=== PATIENT | female | born 1955 | race Caucasian/White ===

== ENCOUNTER 2017-03-05 20:20 | Emergency (ER) | payer OTHER ==
[2017-03-05 20:40] VITALS: BP 139/94; PULSE 57; TEMP 97.6; BMI 25.7
--- NOTE | 2017-03-05 21:23 | PDOC ---
History of Present Illness - General History Source: Patient Exam Limitations: Intoxication - History of Present Illness Initial Comments: CHIEF COMPLAINT: 61 y/o afebrile intoxicated female here with no complaints. HISTORY OF PRESENT ILLNESS: the patient does admit she was drinking vodka today. She states she was walking when an ambulance picked her up and brought her here. She denies all complaints and wants to walk home. She knows where she is and is ambulatory. Vital signs on arrival are notable for pulse of 57. REVIEW OF SYSTEMS: GENERAL/CONSTITUTIONAL: No fever/chills. No weakness. No weight change. HEAD, EYES, EARS, NOSE AND THROAT: No change in vision. No ear pain or discharge. No sore throat. CARDIOVASCULAR: No chest pain or shortness of breath. RESPIRATORY: No cough, wheezing, or hemoptysis. GASTROINTESTINAL: No abd pain, nausea, vomiting, diarrhea. GENITOURINARY: No dysuria, frequency, or change in urination. MUSCULOSKELETAL: No joint or muscle swelling or pain. No neck or back pain. SKIN: No rash or easy bruising. NEUROLOGIC: No headache, vertigo, loss of consciousness, or loss of sensation. PHYSICAL EXAM: GENERAL: The patient is awake, alert, and fully oriented, in no acute distress. She is obviously intoxicated with slightly slurred speech. HEAD: Normal with no signs of trauma. ENT: Pupils equal, round and reactive to light, extraocular movements intact, sclera anicteric, conjunctiva clear. Neck supple. LUNGS: Clear to auscultation bilaterally. Normal excursion. No respiratory distress or use of accessory muscles. CV: RRR, S1/S2, no MRG. Cap refill < 2 sec. ABDOMEN: Soft, non-distended, non-tender even to deep palpation, no hepatomegaly or splenomegaly, no masses. EXTREMITIES: Normal range of motion, no edema. NEUROLOGICAL: slightly slurred speech, intoxicated gait but able to ambulate. CN II-XII grossly intact. PSYCH: Normal mood, normal affect. SKIN: Warm, dry, normal turgor, no rashes or lesions noted. <Albania Richardson - Last Filed: 03/05/17 21:33> <Flaquita Houston - Last Filed: 03/06/17 05:27> - General Chief Complaint: Alcohol intoxication Stated Complaint: INTOX Time Seen by Provider: 03/05/17 21:10 Past History - Past Medical History Other medical history: Pt denies - Psycho/Social/Smoking Cessation Hx Suicidal Ideation: No Smoking History: Never smoked Information on smoking cessation initiated: No Hx Alcohol Use: No Drug/Substance Use Hx: No Substance Use Type: Alcohol <Albania Richardson - Last Filed: 03/05/17 21:33> <Flaquita Houston - Last Filed: 03/06/17 05:27> - Past Medical History Allergies/Adverse Reactions: Allergies Allergy/AdvReac Type Severity Reaction Status Date / Time No Known Allergies Allergy Verified 03/05/17 20:38 *Physical Exam - Vital Signs Last Vital Signs Temp Pulse Resp BP Pulse Ox 97.6 F 57 L 20 139/94 96 03/05/17 20:38 03/05/17 20:38 03/05/17 20:38 03/05/17 20:38 03/05/17 20:38 <Albania Richardson - Last Filed: 03/05/17 21:33> - Vital Signs Last Vital Signs Temp Pulse Resp BP Pulse Ox 97.6 F 57 L 20 139/94 96 03/05/17 20:38 03/05/17 20:38 03/05/17 20:38 03/05/17 20:38 03/05/17 20:38 <Flaquita Houston - Last Filed: 03/06/17 05:27> Medical Decision Making - Medical Decision Making A/P: 61 y/o afebrile intoxicated female here with no complaints who wants to walk home. Pt is A&O x 3. She is intoxicated and admits to drinking vodka today. she can ambulate up and down the hallways of the ER without falling. Will discharge to home. Instructed her to return to the ER with any concerning symptoms. <Albania Richardson - Last Filed: 03/05/17 21:33> *DC/Admit/Observation/Transfer <Albania Richardson - Last Filed: 03/05/17 21:33> - Attestations Physician Attestion: I reviewed the case with the mid-level practitioner and agree with the mid- level practitioner's assessment, diagnosis and disposition. <Flaquita Houston - Last Filed: 03/06/17 05:27> Diagnosis at time of Disposition: Intoxication - Discharge Dispostion Disposition: HOME Condition at time of disposition: Stable - Patient Instructions Printed Discharge Instructions: DI for Alcohol Abuse Additional Instructions: Discharge Instructions: -Return to the ER with any concerning symptoms.
== END 2017-03-05 21:56 | disposition home or self-care (01) ==
LOC: JER 20:20
DX: F10.120 Alcohol abuse with intoxication, uncomplicated (principal)
CPT/HCPCS: 99281-25

== ENCOUNTER 2017-06-04 16:38 | Emergency (ER) | payer OTHER ==
[2017-06-04 16:58] VITALS: BMI 25.7
--- NOTE | 2017-06-04 17:53 | PDOC ---
History of Present Illness - General Chief Complaint: Injury Stated Complaint: FALL Time Seen by Provider: 06/04/17 17:38 History Source: Patient Exam Limitations: No Limitations - History of Present Illness Initial Comments: 06/04/17 17:56 Patient is a 61F with history of a prior alcohol intox admission here today complaining of an injury to her right knee after falling while walking. Denies LOC, head trauma, headache, changes in vision. She states that she tripped because of her shoes, denying any other precipitation symptom such as chest pain , shortness of breath, palpitations, nausea and vomiting. She denies pain in her hip and ankle. She complains of a scratch on the top of her foot. Past History - Past Medical History Allergies/Adverse Reactions: Allergies Allergy/AdvReac Type Severity Reaction Status Date / Time No Known Allergies Allergy Verified 06/04/17 16:59 Home Medications: Ambulatory Orders NK [No Known Home Medication] 06/04/17 COPD: No HTN: Yes (no meds) - Suicide/Smoking/Psychosocial Hx Smoking History: Never smoked Have you smoked in the past 12 months: No Information on smoking cessation initiated: Yes Hx Alcohol Use: No Drug/Substance Use Hx: No Substance Use Type: Alcohol Review of Systems - Review of Systems Comments:: 06/04/17 18:01 GENERAL/CONSTITUTIONAL: No fever or chills. No weakness. HEAD, EYES, EARS, NOSE AND THROAT: No change in vision. No sore throat. CARDIOVASCULAR: No chest pain or shortness of breath RESPIRATORY: No cough, wheezing, or hemoptysis. GASTROINTESTINAL: No nausea, vomiting, diarrhea or constipation. GENITOURINARY: No dysuria, frequency, or change in urination. MUSCULOSKELETAL: Positive for knee pain. No neck or back pain. SKIN: No rash NEUROLOGIC: No headache, vertigo, loss of consciousness, or change in strength/ sensation. ENDOCRINE: No increased thirst. No abnormal weight change HEMATOLOGIC/LYMPHATIC: No anemia, easy bleeding, or history of blood clots. ALLERGIC/IMMUNOLOGIC: No hives or skin allergy. *Physical Exam - Vital Signs Last Vital Signs Temp Pulse Resp BP Pulse Ox 97.9 F 78 18 188/94 100 06/04/17 16:49 06/04/17 16:49 06/04/17 16:49 06/04/17 16:49 06/04/17 16:49 - Physical Exam Comments: 06/04/17 18:03 GENERAL: Awake, alert, and fully oriented, in no acute distress HEAD: No signs of trauma, normocephalic, atraumatic EYES: PERRLA, EOMI, sclera anicteric, conjunctiva clear, ENT: Auricles normal inspection, hearing grossly normal, nares patent, oropharynx clear without exudates. Moist mucosa NECK: Normal ROM, supple, no lymphadenopathy, JVD, or masses. No midline tenderness LUNGS: No distress, speaks full sentences, clear to auscultation bilaterally HEART: Regular rate and rhythm, normal S1 and S2, no murmurs, rubs or gallops, peripheral pulses normal and equal bilaterally. ABDOMEN: Soft, nontender, normoactive bowel sounds. No guarding, no rebound. No masses R KNEE: Small abrasion on front of knee, diffusely tender, swollen, refusing to move right knee, neurovascularly intact distal to injury R ANKLE: Small abrasion on ventral aspect of right ankle, nontender HIPS: Stable to rock, nontender. NEUROLOGICAL: Cranial nerves II through XII grossly intact. Normal speech, no focal sensorimotor deficits SKIN: Warm, Dry, normal turgor, no rashes or lesions noted. ED Treatment Course - RADIOLOGY Radiology Studies Ordered: Category Date Time Status KNEE 3 POS-RIGHT [RAD] Stat Radiology 06/04/17 17:49 Ordered Medical Decision Making - Medical Decision Making 06/04/17 18:05 61F with history of alcohol intox visit here today complaining of r knee pain after a fall, vital signs stable and normal. Will give percocet for pain control and get 3 view x-ray. Will re-evaluate range of motion after some pain control. 06/04/17 18:55 Pain better controlled. Will give tdap. Believe patient has fracture of patella. Will consult ortho. 06/04/17 19:10 Ortho wants pain control, reduction, knee immobilizer and discharge home. Signed out to Dr Patrick. *DC/Admit/Observation/Transfer Diagnosis at time of Disposition: Knee pain, right - Referrals Referrals: STAFF,NOT ON [Primary Care Provider] - - Patient Instructions - Post Discharge Activity
[2017-06-04 18:47] VITALS: BP 134/80; PULSE 82; TEMP 98.3
[2017-06-04] MEDS ORDERED: DIPHTH,PERTUSS(ACELL),TET 0.5 ML DISP.SYRIN IM ONE (18:56)
--- NOTE | 2017-06-04 18:56 | PDOC ---
Attending Attestation - Medical Decision Making 06/04/17 19:33 Received pt on signout. Her knee if fully flexed and she is in too much pain to extend it. Pt will be given IV morphine and she will be placed in a knee immobilizer. We are also awaiting blood test results. Pt will follow with ortho as an outpatient. She will be given bacitracin for her knee wound. 06/04/17 20:28 Labs are normal 06/04/17 20:50 Pt is unable to extend the leg despite 2mg morphine. NSS ordered and another 2mg morphine and toradol ordered. We will attempt to extend the leg. If she still cannot, then we will admit her for inability to ambulate. <Brandy Lynch - Last Filed: 06/04/17 20:50> - Resident Resident Name: Thomas Johns - ED Attending Attestation I have performed the following: I have examined & evaluated the patient, The case was reviewed & discussed with the resident, I agree w/resident's findings & plan, Exceptions are as noted - HPI HPI: 06/04/17 18:53 61 F with no PMH Presents to ER with R knee pain. Pt was walking when she tripped over her shoes, landing directly onto her L knee. SHe states that she felt her knee twist. She denies headstrike/LOC. Denies injury to any other extremity. Pt has since been unable to straighten her leg and states that she is most comfortable with her knee flexed. - Physicial Exam PE: 06/04/17 18:54 "GENERAL: Awake, alert, and fully oriented, in no acute distress HEAD: No signs of trauma EYES: PERRLA, EOMI, sclera anicteric, conjunctiva clear ENT: Auricles normal inspection, hearing grossly normal, nares patent, oropharynx clear without exudates. Moist mucosa NECK: Nontender, no stepoffs, Normal ROM, supple, no lymphadenopathy, JVD, or masses LUNGS: Breath sounds equal, clear to auscultation bilaterally. No wheezes, and no crackles HEART: Regular rate and rhythm, normal S1 and S2, no murmurs, rubs or gallops ABDOMEN: Soft, nontender, normoactive bowel sounds. No guarding, no rebound. No masses EXTREMITIES: (+) RLE with deformity and effusion over knee, ROM limited 2/2 pain , distal pulses intact, sensation intact to light touch NEUROLOGICAL: Cranial nerves II through XII intact. 5/5 strength and sensation in all extremities, Normal speech, normal gait SKIN: Abrasion to R knee and ankle without lacerations " - Medical Decision Making 06/04/17 18:55 61 F with R knee deformity s/p falling. Concerning for patellar fx. Pt with intact dorsalis pedis pulse and intact sensation, making neurovascular injury unlikely. - XR R knee with sunrise view - Tdap - Pain control 06/04/17 19:14 XR with patellar fx. Spoke with JAMES Capps, covering for orthopedic consult Dr. Perez, who recommends knee immobilizer and outpt f/u. Pt signed out to oncoming attending at 7PM, pending labs, pain control, knee immobilizer. Case discussed in detail with oncoming Emergency Physician including history, physical exam and ancillary studies. Oncoming Emergency Physician has assumed care for the patient and will complete the evaluation and treatment. Patient is aware of the plan. <Silas Johnston - Last Filed: 06/07/17 01:00>
[2017-06-04 19:27] LABS: MCH 31.3 pg (25.7-33.7); MEAN CELL VOLUME 92.3 fl (80-96); MEAN PLT VOLUME 7.7 fl (7.5-11.1); PLATELET COUNT 187 K/MM3 (134-434); RDW 13.9 % (11.6-15.6); WHITE BLOOD COUNT 7.6 K/mm3 (4.0-10.0)
[2017-06-04] MEDS ORDERED: morphine CARPU-JECT 2 MG/1 ML DISP.SYRIN IVPUSH ONE ×2 (19:30→20:39)
--- NOTE | 2017-06-04 19:37 | PDOC ---
*Physical Exam - Vital Signs Care assumed from Dr. Johns. 61 YOF h/o alcohol use presents after knee injury. Patella fracture on XR, ortho consulted and wants to see her as outpatient, recommends pain control, knee immobilizer, clinic f/u. Pt has abrasions to the knee and ankle and tetanus will be updated. Last Vital Signs Temp Pulse Resp BP Pulse Ox 98.3 F 82 20 134/80 98 06/04/17 18:46 06/04/17 18:46 06/04/17 18:46 06/04/17 18:46 06/04/17 18:46 - Physical Exam General Appearance: Yes: Nourished, Appropriately Dressed, Mild Distress, Other (adult female in mild distress which escalates to moderate distress with any manipulation of the RLE for knee exam, anxious, tearful) HEENT: positive: EOMI, Normal Voice, Hearing Grossly Normal. negative: Scleral Icterus (R), Scleral Icterus (L) Neck: positive: Trachea midline. negative: Rigid Respiratory/Chest: positive: Normal Breath Sounds. negative: Respiratory Distress Cardiovascular: positive: Regular Rhythm, Regular Rate Gastrointestinal/Abdominal: positive: Flat, Soft. negative: Tender Musculoskeletal: positive: Normal Inspection. negative: Decreased Range of Motion Extremity: positive: Normal Capillary Refill, Tender (right anterior knee), Pelvis Stable, Swelling (right knee), Other (right knee held in flexion and patient cannot extend (actively or passively) states 2/2 pain). negative: Normal Range of Motion, Coldness, Cyanosis, Delayed Capillary Refill, Pedal Edema, Calf Tenderness, Erythema Integumentary: positive: Normal Color, Dry, Warm. negative: Erythema, Rash, Bruising Neurologic: positive: agronomy location manager II-XII NML intact, Fully Oriented, Alert, Normal Mood/ Affect, Normal Response, Motor Strength 5/5 ED Treatment Course - LABORATORY CBC & Chemistry Diagram: 06/04/17 19:15 06/04/17 19:15 - Medications Given in the ED: ED Medications Discontinued Medications Generic Name Dose Route Start Last Admin Trade Name Freq PRN Reason Stop Dose Admin Diphtheria/Tetanus/Acell Pertussis 0.5 ml 06/04/17 18:56 06/04/17 19:01 Boostrix - IM 06/04/17 18:57 0.5 ml .ONCE ONE Administration Oxycodone/Acetaminophen 1 combo 11/12/17 17:49 06/04/17 17:51 Percocet 5/325 - PO 06/04/17 17:50 1 combo ONCE ONE Administration Medical Decision Making - Medical Decision Making 61 YOF presents with knee injury after mechanical fall. Patella fracture on XR, also knee and ankle abrasions but these are minor. Tdap offered but Pt states she believes her doctor recently gave her an update. Pain controlled in department, RLE is extended slowly after analgesics, knee immobilizer donned. Ortho consulted and recommends outpatient clinic follow up with them. She is appropriate for discharge home, given Percocet and crutches. Return precautions are discussed. *DC/Admit/Observation/Transfer Diagnosis at time of Disposition: Abrasions of multiple sites Knee pain, right Qualifiers: Chronicity: acute Qualified Code(s): M25.561 - Pain in right knee Patellar sleeve fracture of right knee Qualifiers: Encounter type: initial encounter Fracture type: closed Qualified Code(s): S82.091A - Other fracture of right patella, initial encounter for closed fracture - Discharge Dispostion Disposition: HOME Condition at time of disposition: Stable Admit: No - Prescriptions Prescriptions: Bacitracin - [Bacitracin Topical Ointment -] 1 applic TP BID #10 g Oxycodone HCl/Acetaminophen [Percocet 5/325 -] 1 tab PO Q6H #20 tablet MDD 4 - Referrals Referrals: STAFF,NOT ON [Primary Care Provider] - Silas Ireland MD [Staff Physician] - - Patient Instructions Printed Discharge Instructions: DI for Patella Fracture Additional Instructions: You were seen in the ER for a patella fracture and abrasions from a fall onto your knee. We saw the fracture on your x-ray. We talked with the orthopedist professional bass fisher and they will see you in their clinic this week. We placed a knee immobilizer and gave you crutches, updated your tetanus shot, and are discharging you home. We are sending a prescription for Percocet to your pharmacy. Please follow up with the orthopedics clinic (Dr. Ireland, , call them on Monday Morning), or return to the ER for any new or worsening symptoms. - Post Discharge Activity
[2017-06-04] MEDS ORDERED: morphine SULFATE 4 MG/ML VIAL ONE ×2 (19:42→20:46)
[2017-06-04 19:52] LABS: ALBUMIN 4.4 g/dl (3.4-5.0); ALK PHOS 54 U/L (45-117); ANION GAP 10 (8-16); BILIRUBIN,TOTAL 1.1 mg/dL (0.2-1.0); CALCIUM 9.1 mg/dL (8.5-10.1); CO2 25 mmol/L (21-32); CREATININE 0.7 mg/dL (0.55-1.02); GLUCOSE,RANDOM 121 mg/dL (74-106); SGOT/AST 54 U/L (15-37); SGPT/ALT 48 U/L (12-78); TOT PROT 8.1 g/dl (6.4-8.2)
[2017-06-04] MEDS ORDERED: BACITRACIN 0.9 GM PACKET ONE (19:57)
[2017-06-04] MEDS ORDERED: KETOROLAC TROMETHAMINE 30 MG/1 ML VIAL IVPUSH ONE (20:39)
--- NOTE | 2017-06-05 17:31 | EKG ---
Test Reason : Blood Pressure : / mmHG Vent. Rate : 076 BPM Atrial Rate : 076 BPM P-R Int : 114 ms QRS Dur : 084 ms QT Int : 420 ms P-R-T Axes : -24 075 061 degrees QTc Int : 472 ms NORMAL SINUS RHYTHM NORMAL ECG NO PREVIOUS ECGS AVAILABLE Confirmed by VELVET BERMAN MD ([id number]) on 06/05/2017 5:31:07 PM Referred By: Confirmed By:VELVET BERMAN MD
== END 2017-06-05 01:59 | disposition home or self-care (01) ==
LOC: JER 16:38
PROC: 3E0234Z Introduction of Serum, Toxoid and Vaccine into Muscle, Percutaneous Approach (ICD-10-PCS; principal; 2017-06-04)
PROC: 3E033NZ Introduction of Analgesics, Hypnotics, Sedatives into Peripheral Vein, Percutaneous Approach (ICD-10-PCS; 2017-06-04)
PROC: 3E0333Z Introduction of Anti-inflammatory into Peripheral Vein, Percutaneous Approach (ICD-10-PCS; 2017-06-04)
PROC: 2W3QXYZ Immobilization of Right Lower Leg using Other Device (ICD-10-PCS; 2017-06-04)
DX: S82.091A Other fracture of right patella, initial encounter for closed fracture (principal); W01.0XXA Fall on same level from slipping, tripping and stumbling without subsequent striking against object, initial encounter; Y93.89 Activity, other specified; Y92.038 Other place in apartment as the place of occurrence of the external cause; Y99.8 Other external cause status; I10 Essential (primary) hypertension
CPT/HCPCS: 29530; 36415; 71010-TC; 73562-TC-RT; 73700-TC-RT; 80053; 85027; 90471; 90715; 93005; 93010; 96374; 96375; 99283-25

== ENCOUNTER 2018-08-12 16:01 | Emergency (ER) | payer OTHER ==
[2018-08-12 16:10] VITALS: BP 155/78; PULSE 81; TEMP 98; BMI 24.2
--- NOTE | 2018-08-12 20:04 | PDOC ---
History of Present Illness - General Chief Complaint: Alcohol intoxication Stated Complaint: INTOX Time Seen by Provider: 08/12/18 18:00 History Source: Patient Exam Limitations: No Limitations - History of Present Illness Initial Comments: 08/12/18 19:59 62 yo F w/ no sig PMHx comes in requesting detox for alcohol abuse. She says that she drinks approx 8 glasses of wine daily, last glass was at around 1pm. no complaints at this time. NO fever/chills, no withdrawal symptoms, no NVD, no CP, no SOB. She would like to know if they have a bed available in detox center. Past History - Past Medical History Allergies/Adverse Reactions: Allergies Allergy/AdvReac Type Severity Reaction Status Date / Time No Known Allergies Allergy Verified 08/12/18 16:10 Home Medications: Ambulatory Orders NK [No Known Home Medication] 08/12/18 COPD: No HTN: Yes (no meds) - Suicide/Smoking/Psychosocial Hx Smoking History: Never smoked Have you smoked in the past 12 months: No Hx Alcohol Use: Yes Drug/Substance Use Hx: No Substance Use Type: Alcohol Review of Systems - Review of Systems Able to Perform ROS?: Yes Constitutional: No: Chills, Fever, Malaise, Night Sweats HEENTM: No: Eye Pain, Recent change in vision, Throat Pain Respiratory: No: Cough, Shortness of Breath Cardiac (ROS): No: Chest Pain, Palpitations, Chest Tightness ABD/GI: No: Diarrhea, Nausea, Vomiting, Abdominal cramping : No: Dysuria, Hematuria Musculoskeletal: No: Back Pain Integumentary: No: Rash Neurological: No: Headache, Numbness, Dizziness Psychiatric: No: Change in Appetite Endocrine: No: Unexplained Weight Loss *Physical Exam - Vital Signs Last Vital Signs Temp Pulse Resp BP Pulse Ox 98 F 81 18 155/78 97 08/12/18 16:06 08/12/18 16:06 08/12/18 16:06 08/12/18 16:06 08/12/18 16:06 - Physical Exam General Appearance: Yes: Nourished. No: Apparent Distress HEENT: positive: LEEANNE, Normal ENT Inspection, Normal Voice. negative: Pale Conjunctivae, Scleral Icterus (R), Scleral Icterus (L) Neck: positive: Supple. negative: Decreased range of motion, Tender midline Respiratory/Chest: positive: Lungs Clear, Normal Breath Sounds. negative: Respiratory Distress, Accessory Muscle Use Cardiovascular: positive: Regular Rhythm, Regular Rate Gastrointestinal/Abdominal: positive: Normal Bowel Sounds, Soft. negative: Tender Musculoskeletal: positive: Normal Inspection. negative: CVA Tenderness, Decreased Range of Motion Extremity: positive: Normal Capillary Refill, Normal Inspection, Normal Range of Motion. negative: Tender, Pedal Edema Integumentary: positive: Normal Color, Dry. negative: Jaundice, Rash Neurologic: positive: utility specialist II-XII NML intact, Fully Oriented, Alert, Normal Mood/ Affect, Motor Strength 5/5, Responsive (and coherent), Other (ABle to walk a straight line, able to do finger to nose. Very mild tremor to hands.) Moderate Sedation - Procedure Monitoring Vital Signs: Procedure Monitoring Vital Signs Temperature 98 F 08/12/18 16:06 Pulse Rate 81 08/12/18 16:06 Respiratory Rate 18 08/12/18 16:06 Blood Pressure 155/78 08/12/18 16:06 O2 Sat by Pulse Oximetry (%) 97 08/12/18 16:06 Medical Decision Making - Medical Decision Making 08/12/18 20:02 62 yo F here for detox, no signs of clinical intoxication, will call detox center to see if they have a bed prior to drawing labs for medical clearance. Detox center does have beds but they do not accept patient's insurance, when I told her that, she said thank you and walked out, refused to stay for discharge papers, or for further evaluation, she eloped. *DC/Admit/Observation/Transfer Diagnosis at time of Disposition: Desire for detoxification - Discharge Dispostion Disposition: ELOPED - Referrals - Patient Instructions - Post Discharge Activity
== END 2018-08-12 19:00 | disposition left against medical advice (07) ==
LOC: JER 16:01
DX: F10.120 Alcohol abuse with intoxication, uncomplicated (principal)
CPT/HCPCS: 99281-25

== ENCOUNTER 2023-02-19 11:01 | Emergency (ER) | payer OTHER ==
[2023-02-19 11:14] VITALS: TEMP 98.1; BMI 24.1
[2023-02-19] MEDS ORDERED: ACETAMINOPHEN 500 MG TABLET (FP) PO ONE (11:35)
[2023-02-19] MEDS ORDERED: ACETAMINOPHEN 325 MG TABLET (FP) ONE (11:40)
[2023-02-19 11:57] LABS: BASO % 0.8 % (0-2.0); EOS % 2.7 % (0-4.5); HEMATOCRIT 39.1 % (32.4-45.2); HEMOGLOBIN 13.5 GM/dL (10.7-15.3); LYMPH % 23.3 % (8-40); MCHC 34.6 g/dl (32.0-36.0); MEAN CELL VOLUME 89.6 fl (80-96); MEAN PLT VOLUME 8.3 fl (7.5-11.1); MONO % 9.1 % (3.8-10.2); NEUT % 64.1 % (42.8-82.8); PLATELET COUNT 255 10^3/uL (134-434); RBC 4.36 M/mm3 (3.60-5.2); RDW 13.3 % (11.6-15.6); WHITE BLOOD COUNT 6.4 K/mm3 (4.0-10.0)
[2023-02-19 12:24] LABS: POTASSIUM 3.3 mmol/L (3.5-5.1)
[2023-02-19 12:26] LABS: CALCIUM 9.4 mg/dL (8.5-10.1)
[2023-02-19 12:27] LABS: ALBUMIN 4.2 g/dl (3.4-5.0); BLOOD UREA NITROGEN 12.9 mg/dL (7-18)
[2023-02-19 12:30] LABS: CREATININE 0.8 mg/dL (0.55-1.3)
[2023-02-19 12:31] LABS: BILIRUBIN,TOTAL 0.4 mg/dL (0.2-1)
[2023-02-19 14:48] VITALS: RESP 18
[2023-02-19] MEDS ORDERED: POTASSIUM CHLORIDE ORAL LIQUID 20 MEQ/15 ML PO ONE (14:50)
[2023-02-19] MEDS ORDERED: POTASSIUM CHLORIDE ORAL LIQUID 20 MEQ/15 ML ONE (14:54)
[2023-02-19 15:22] VITALS: BP 132/78; PULSE 96
== END 2023-02-19 15:22 | disposition home or self-care (01) ==
LOC: JER 11:01
DX: R07.89 Other chest pain (principal)
CPT/HCPCS: 36415; 71046-TC-FY; 80053; 84484; 85025; 93005; 93010; 99285-25

== ENCOUNTER 2023-06-30 14:06 | Emergency (ER) | payer OTHER ==
[2023-06-30 14:09] VITALS: BP 158/77; PULSE 73; RESP 18; TEMP 98.4; BMI 24.9
[2023-06-30] MEDS ORDERED: ACETAMINOPHEN 325 MG TABLET (FP) PO ONE (14:51)
== END 2023-06-30 15:32 | disposition home or self-care (01) ==
LOC: JER 14:06 → JERFT 14:06
DX: S93.402A Sprain of unspecified ligament of left ankle, initial encounter (principal); M25.572 Pain in left ankle and joints of left foot; R20.2 Paresthesia of skin; R22.42 Localized swelling, mass and lump, left lower limb; X50.1XXA Overexertion from prolonged static or awkward postures, initial encounter
CPT/HCPCS: 73610-TC-LT-FY; 73630-TC-LT; 99283-25

== ENCOUNTER 2024-09-19 10:34 | Emergency (ER) | payer OTHER ==
[2024-09-19 10:58] VITALS: BP 150/87; PULSE 78; RESP 16; TEMP 98.5; BMI 24.9
== END 2024-09-19 12:09 | disposition home or self-care (01) ==
LOC: JERFT 10:34
DX: M54.6 Pain in thoracic spine (principal); X50.1XXA Overexertion from prolonged static or awkward postures, initial encounter
CPT/HCPCS: 71046-TC-FY; 99283-25

== ENCOUNTER 2024-09-24 07:50 | Emergency (ER) | payer OTHER ==
[2024-09-24 07:59] VITALS: BP 122/83; PULSE 63; RESP 16; TEMP 97.6; BMI 24.0
[2024-09-24] MEDS ORDERED: LIDOCAINE 4% PATCH TP ONE (08:33)
[2024-09-24] MEDS ORDERED: IBUPROFEN 400 MG TABLET (FP) PO ONE (08:34)
[2024-09-24] MEDS: IBUPROFEN 600 MG TABLET (FP) PO ONE (08:36)
[2024-09-24] MEDS: LIDOCAINE 5% TOPICAL PATCH TP ONE (08:36)
[2024-09-24] MEDS: LIDOCAINE 4% PATCH TP ONE (08:37)
[2024-09-24 09:09] LABS: EPI CELLS 5 /uL (0-25.1); HYALINE CASTS 0 /uL (0-3.1); PH,URINE 8.5 (5.0-8.0); URINE APPEARANCE CLEAR; URINE BACTERIA 17 /uL (0-1359); URINE BILIRUBIN NEGATIVE (NEGATIVE); URINE COLOR YELLOW; URINE GLUCOSE (UA) NEGATIVE (NEGATIVE); URINE KETONE NEGATIVE (NEGATIVE); URINE LEUK ESTERASE 2+ (NEGATIVE); URINE NITRITE NEGATIVE (NEGATIVE); URINE PROTEIN NEGATIVE (NEGATIVE); URINE RBC 31 /uL (0-23.9); URINE UROBILINOGEN 0.2 mg/dL (0.2-1.0); URINE WBC 16 /uL (0-25.8)
[2024-09-24 09:10] LABS: EOS % 3.5 % (0-4.5); HEMATOCRIT 39.4 % (32.4-45.2); HEMOGLOBIN 13.3 GM/dL (10.7-15.3); LYMPH % 26.9 % (8-40); MCH 31.7 pg (25.7-33.7); MCHC 33.8 g/dl (32.0-36.0); MEAN CELL VOLUME 93.8 fl (80-96); MONO % 9.5 % (3.8-10.2); NEUT % 59.1 % (42.8-82.8); PLATELET COUNT 315 10^3/uL (134-434); RDW 13.6 % (11.6-15.6); WHITE BLOOD COUNT 6.1 K/mm3 (4.0-10.0)
[2024-09-24 09:18] LABS: POTASSIUM 3.7 mmol/L (3.5-5.1)
[2024-09-24 09:20] LABS: BLOOD UREA NITROGEN 13.4 mg/dL (7-18); CALCIUM 9.4 mg/dL (8.5-10.1)
[2024-09-24 09:24] LABS: CREATININE 0.8 mg/dL (0.55-1.3)
[2024-09-24 09:25] LABS: BILIRUBIN,TOTAL 0.8 mg/dL (0.2-1); TOT PROT 7.7 g/dl (6.4-8.2)
[2024-09-24] MEDS ORDERED: LIDOCAINE PATCH REMOVAL MC ONE ×2 (22:00)
== END 2024-09-24 09:43 | disposition home or self-care (01) ==
LOC: JERFT 07:50
DX: N39.0 Urinary tract infection, site not specified (principal); R10.11 Right upper quadrant pain; M54.6 Pain in thoracic spine
CPT/HCPCS: 36415; 76705-TC; 76775-TC; 80053; 81003; 85025; 99284-25